=== PATIENT | male | born 1985 | race African-American/Black ===

== ENCOUNTER 2020-03-28 02:19 | Emergency (ER) | payer MEDICAID, OTHER ==
[~2020-03-28] VITALS: Ht 172.7 cm; Wt 81.0 kg
[2020-03-28] MEDS ORDERED: DIPHENHYDRAMINE 50MG/ML VIAL IM ONE (02:30)
[2020-03-28] MEDS ORDERED: HALOPERIDOL LACTATE 5MG/ML VIAL IM ONE ×2 (02:30→04:45)
[2020-03-28] MEDS ORDERED: OLANZAPINE 10 MG/VIAL IM ONE (02:30)
[2020-03-28 03:42] LABS: CHLORIDE 110 mEq/L (98-107)
[2020-03-28 03:46] LABS: ETHANOL BLOOD 235 mg/dL
[2020-03-28 03:59] LABS: BASOPHILS % 0.9 % (0.0-2.0); HEMATOCRIT. 40.8 % (42.0-52.0); HEMOGLOBIN. 13.5 g/dL (14.0-18.0); LYMPHOCYTES % 16.6 % (20.0-50.0); MEAN CORPUSCULAR HEMOGLOBIN 25.4 pg (28.0-32.0); MEAN CORPUSCULAR VOLUME 76.6 fL (80.0-94.0); MEAN PLATELET VOLUME 8.3 fl (7.4-10.4); MONOCYTES % 7.1 % (2.0-8.0); NEUTROPHILS % 75.4 % (40.0-76.0); PLATELET 166 x1000/uL (130-400); RED BLOOD CELL COUNT 5.32 mill/uL (4.7-6.1); RED CELL DISTRIBUTION WIDTH 16.4 % (11.6-14.6)
[2020-03-28] MEDS ORDERED: POTASSIUM CHLORIDE INJ 40 MEQ in DEXT 5% WATER 250 ML IV NR (04:45)
[2020-03-28] MEDS ORDERED: ONDANSETRON HCL 4MG/2ML INJ IV ONE (04:45)
[2020-03-28 05:38] LABS: *BARBITURATES SCREEN URINE NEGATIVE (NEGATIVE); *BENZODIAZEPINES SCREEN URINE NEGATIVE (NEGATIVE); *COCAINE SCREEN URINE NEGATIVE (NEGATIVE)
[2020-03-28 05:39] LABS: *AMPHETAMINES SCREEN URINE PRESUMTIVE POSITIVE (NEGATIVE); CANNABINOID URINE SCREEN PRESUMTIVE POSITIVE (NEGATIVE); METHADONE URINE SCREEN NEGATIVE (NEGATIVE); OPIATES URINE SCREEN NEGATIVE (NEGATIVE); PHENCYCLIDINE URINE SCREEN NEGATIVE (NEGATIVE)
[2020-03-28 14:26] VITALS: BP 117/74
== END 2020-03-28 14:30 | disposition home or self-care (01) ==
LOC: EDBD 02:19 → ER 02:51
DX: F12.129 Cannabis abuse with intoxication, unspecified (principal); F10.129 Alcohol abuse with intoxication, unspecified; E87.6 Hypokalemia; E11.9 Type 2 diabetes mellitus without complications; Y90.9 Presence of alcohol in blood, level not specified
CPT/HCPCS: 36415; 80053; 80305; 80320; 85025; 93005; 96365; 96372; 96375; 99285; J1200; J1630; J2405; J3480; J3490; J7060; G0480